=== PATIENT | male | born 1935 | race Asian ===

== ENCOUNTER 2019-04-10 17:13 | Emergency (ER) | payer OTHER ==
[~2019-04-10] VITALS: Ht 165.1 cm; Wt 59.9 kg
[2019-04-10 17:19] VITALS: Ht 165.1 cm; Wt 59.9 kg
[2019-04-10 20:56] VITALS: BP 139/64
== END 2019-04-10 20:56 | disposition home or self-care (01) ==
LOC: ED 17:13
DX: S00.83XA Contusion of other part of head, initial encounter (principal); I10 Essential (primary) hypertension; W18.30XA Fall on same level, unspecified, initial encounter; Y93.89 Activity, other specified; Y92.89 Other specified places as the place of occurrence of the external cause; Y99.8 Other external cause status